=== PATIENT | male | born 1965 | race Caucasian/White ===

== ENCOUNTER 2021-11-01 05:29 | Inpatient (IN) | payer BC ==
[2021-11-01] MEDS ORDERED: Dextrose 5%-Lactated Ringers 1,000 ML IV SCH ×2 (06:00→10:45)
[2021-11-01] MEDS ORDERED: Acetaminophen 500 MG Tab PO ONE (06:00)
[2021-11-01] MEDS ORDERED: Scopolamine 1.5 MG Transdermal Patch TOP ONE (06:00)
[2021-11-01] MEDS ORDERED: Celecoxib 200 MG Cap PO ONE (06:00)
[2021-11-01] MEDS ORDERED: Meropenem 500 MG SDV ONE (06:40)
[2021-11-01] MEDS ORDERED: Succinylcholine 200 MG/10 ML MDV ONE (07:08)
[2021-11-01] MEDS ORDERED: Glycopyrrolate 0.2 MG/ML 5 ML MDV ONE (07:08)
[2021-11-01] MEDS ORDERED: Ondansetron 4 MG/2 ML SDV ONE (07:08)
[2021-11-01] MEDS ORDERED: Rocuronium 50 MG/5 ML Vial ONE ×2 (07:08→08:50)
[2021-11-01] MEDS ORDERED: Propofol 200 MG/20 ML SDV ONE (07:08)
[2021-11-01] MEDS ORDERED: Dexamethasone 4 MG/ML SDV ONE (07:08)
[2021-11-01] MEDS ORDERED: fentaNYL 250 MCG/5 ML SDV ONE ×3 (07:08→11:37)
[2021-11-01] MEDS ORDERED: Neostigmine Methylsulfate 1 MG/ML 5 ML Syringe ONE (07:08)
[2021-11-01] MEDS ORDERED: cefOXitin 2 GM Vial ONE (07:12)
[2021-11-01] MEDS ORDERED: cefOXitin 2 GM in Sodium Chloride 0.9% 50 ML IV ONE (07:15)
[2021-11-01] MEDS ORDERED: Ketamine 19 MG in Sodium Chloride 0.9% 19.81 ML IV SCH (07:30)
[2021-11-01] MEDS ORDERED: Ketamine 500 MG/5 ML MDV IV SCH (07:30)
[2021-11-01] MEDS ORDERED: Labetalol 20 MG/4 ML Syringe ONE (08:23)
[2021-11-01] MEDS ORDERED: Sugammadex Sodium 200 MG/2 ML VIAL ONE (09:14)
[2021-11-01] MEDS ORDERED: 50% Dextrose in Water 50 ML Syringe IVPUSH PRN (09:43)
[2021-11-01] MEDS ORDERED: Insulin Lispro 100 Unit/ML 3 ML KwikPen SUBCUT ONE (09:43)
[2021-11-01] MEDS ORDERED: Glucagon,Human Recombinant 1 MG Vial IM PRN (09:43)
[2021-11-01 09:54] LABS: HEMOGLOBIN A1C 6.2 % (4.5-6.2)
[2021-11-01] MEDS ORDERED: hydrOXYzine HCL 100 MG/2 ML SDV IM ONE (09:59)
[2021-11-01] MEDS ORDERED: fentaNYL 100 MCG/2 ML SDV IVPUSH ONE (09:59)
[2021-11-01] MEDS ORDERED: Cyclobenzaprine 10 MG Tab PO PRN (10:33)
[2021-11-01] MEDS ORDERED: HYDROmorphone 0.5 MG/0.5 ML Syringe IVPUSH PRN (11:00)
[2021-11-01] MEDS ORDERED: Pantoprazole 40 MG Vial IVPUSH SCH (11:00)
[2021-11-01] MEDS ORDERED: Acetaminophen 500 MG Tab PO PRN (11:00)
[2021-11-01] MEDS ORDERED: diphenhydrAMINE 50 MG/ML SDV IVPUSH PRN (11:00)
[2021-11-01] MEDS ORDERED: Metoclopramide 10 MG/2 ML SDV IVPUSH PRN (11:00)
[2021-11-01] MEDS ORDERED: Labetalol 20 MG/4 ML Syringe IVPUSH PRN (11:00)
[2021-11-01] MEDS ORDERED: HYDROmorphone 1 MG/ML Syringe IV PRN (11:00)
[2021-11-01] MEDS ORDERED: Ondansetron 4 MG/2 ML SDV IVPUSH PRN (11:00)
[2021-11-01] MEDS ORDERED: hydrOXYzine HCL 100 MG/2 ML SDV IM PRN (11:00)
[2021-11-01] MEDS ORDERED: oxyCODONE 5 MG Tab PO PRN (11:00)
[2021-11-01] MEDS: Lactated Ringers 1,000 ML IV SCH (11:12)
[2021-11-01] MEDS: traMADol 50 MG Tab PO PRN ×2 (11:19→19:24)
[2021-11-01] MEDS: Acetaminophen 500 MG Tab PO SCH ×2 (14:39→21:45)
[2021-11-01] MEDS: cefOXitin 2 GM in Sodium Chloride 0.9% 50 ML IV SCH ×2 (14:39→19:26)
[2021-11-01] MEDS ORDERED: MVI, Adult with Vitamin K 10 ML, Thiamine 200 MG, Zinc/Copper/Manganese/Selenium 1 ML i... IV SCH ×4 (16:00)
[2021-11-01] MEDS: Insulin Lispro 100 Unit/ML 3 ML KwikPen SUBCUT SCH ×2 (16:13→21:44)
[2021-11-01] MEDS: Heparin Sodium 5,000 Units/ML Vial SUBCUT SCH (17:10)
[2021-11-01] MEDS: atorvaSTATin 20 MG Tab PO SCH (20:37)
[2021-11-02] MEDS: cefOXitin 2 GM in Sodium Chloride 0.9% 50 ML IV SCH ×3 (00:54→13:18)
[2021-11-02] MEDS: Lactated Ringers 1,000 ML IV SCH ×2 (01:49→09:39)
[2021-11-02] MEDS ORDERED: Iopamidol 612 MG/ML 50 ML SDV PO STA (03:12)
[2021-11-02] MEDS: Heparin Sodium 5,000 Units/ML Vial SUBCUT SCH ×2 (03:56→16:11)
[2021-11-02] MEDS: Insulin Lispro 100 Unit/ML 3 ML KwikPen SUBCUT SCH ×4 (04:14→21:18)
[2021-11-02] MEDS: Acetaminophen 500 MG Tab PO SCH ×3 (05:59→21:07)
[2021-11-02] MEDS: traMADol 50 MG Tab PO PRN (07:26)
[2021-11-02] MEDS ORDERED: Ondansetron 4 MG Tab.DIS PO PRN (07:33)
[2021-11-02] MEDS ORDERED: hydrOXYzine HCl 25 MG Tab PO PRN (07:35)
[2021-11-02] MEDS: SCOPOLAMINE PATCH CHECK TOP SCH (08:59)
[2021-11-02] MEDS: Lisinopril 20 MG Tab PO SCH (08:59)
[2021-11-02] MEDS: Celecoxib 200 MG Cap PO SCH ×2 (08:59→21:07)
[2021-11-02] MEDS ORDERED: MVI, Adult with Vitamin K 10 ML, Thiamine 200 MG, Zinc/Copper/Manganese/Selenium 1 ML i... IV SCH ×4 (16:00)
[2021-11-02] MEDS ORDERED: Pantoprazole 40 MG Delayed-Release Granules 1 Packet PO SCH (16:30)
[2021-11-02] MEDS: atorvaSTATin 20 MG Tab PO SCH (21:07)
[2021-11-03] MEDS: Heparin Sodium 5,000 Units/ML Vial SUBCUT SCH (03:54)
[2021-11-03] MEDS: Insulin Lispro 100 Unit/ML 3 ML KwikPen SUBCUT SCH (04:24)
[2021-11-03] MEDS: Lactated Ringers 1,000 ML IV SCH (05:22)
[2021-11-03] MEDS: Acetaminophen 500 MG Tab PO SCH (05:22)
[2021-11-03] MEDS ORDERED: Magnesium Hydroxide 400 MG/5 ML Susp 30 ML Cup PO PRN (07:53)
[2021-11-03] MEDS: Celecoxib 200 MG Cap PO SCH (08:07)
[2021-11-03] MEDS: Lisinopril 20 MG Tab PO SCH (08:07)
[2021-11-03] MEDS: SCOPOLAMINE PATCH CHECK TOP SCH (08:08)
[2021-11-03] MEDS: traMADol 50 MG Tab PO PRN (08:15)
[2021-11-03] MEDS ORDERED: Cyanocobalamin (Vitamin B12) 1,000 MCG/ML SDV IM ONE (09:00)
== END 2021-11-03 10:51 | disposition home or self-care (01) | DRG 403 ==
LOC: JP.SDS 05:29 → EDSTATUS 07:15 → JP.MS 07:40
PROVIDERS: ADMIT Surgery; ATTEND Surgery
PROC: 0D164ZA Bypass Stomach to Jejunum, Percutaneous Endoscopic Approach (ICD-10-PCS; principal; 2021-11-01)
PROC: 0FB24ZX Excision of Left Lobe Liver, Percutaneous Endoscopic Approach, Diagnostic (ICD-10-PCS; 2021-11-01)
PROC: 0BQT4ZZ Repair Diaphragm, Percutaneous Endoscopic Approach (ICD-10-PCS; 2021-11-01)
PROC: 0JB63ZZ Excision of Chest Subcutaneous Tissue and Fascia, Percutaneous Approach (ICD-10-PCS; 2021-11-01)
DX: E66.01 Morbid (severe) obesity due to excess calories (principal); Z68.42 Body mass index [BMI] 45.0-49.9, adult; G47.33 Obstructive sleep apnea (adult) (pediatric); E11.9 Type 2 diabetes mellitus without complications; R16.0 Hepatomegaly, not elsewhere classified; K44.9 Diaphragmatic hernia without obstruction or gangrene; D17.4 Benign lipomatous neoplasm of intrathoracic organs; I10 Essential (primary) hypertension; E78.5 Hyperlipidemia, unspecified; Z98.890 Other specified postprocedural states; Z79.899 Other long term (current) drug therapy; Z88.2 Allergy status to sulfonamides
CPT/HCPCS: 36415; 74240; 74240-26; 82947; 83036; 83735; 84100; 86850; 86900; 86901; 88305; 88307; 88313; A9270-GY; C9113; J0171; J0330; J0694; J1100; J1170; J1644; J1815; J2185; J2405; J2704; J2710; J2795; J3010; J3410; J3411; J3420; J3490; J7120; J7121